=== PATIENT | female | born 1985 | race Two or more races ===

== ENCOUNTER 2017-10-13 10:14 | Emergency (ER) | payer MEDICAID ==
[~2017-10-13] VITALS: Ht 154.9 cm; Wt 63.5 kg
[~2017-10-13 10:14] MED LIST: MACROBID100 MG ORAL
[2017-10-13] MEDS ORDERED: NKM (10:21)
[2017-10-13 10:25] VITALS: BP 155/117
[2017-10-13] MEDS ORDERED: Ketorolac 30mg Inj IM ONE (10:45)
[2017-10-13] MEDS ORDERED: Norco 5mg/325mg tab ORAL ONE (10:45)
[2017-10-13] MEDS ORDERED: NORCO 5-325 TA1 EACH ORAL (12:26)
[2017-10-13] MEDS ORDERED: TYLENOL EXTRA500 MG ORAL (12:26)
[2017-10-13 12:36] VITALS: BP 155/117
--- NOTE | 2017-10-13 14:14 | Emergency Room Report ---
History of Present Illness General Chief Complaint: Pain Source: Patient Present Illness HPI 32-year-old female presents ED complaining of back pain. States last night she had a mechanical slip and fall landing on her buttock. Denies any other injuries. Presents with pain to her lower back., Sharp, 10 out of 10, nonradiating. No other aggravating relieving factors. Denies any other associated symptoms Allergies: Coded Allergies: No Known Allergies (Unverified , 03/13/16) Patient History Past Medical History: none Past Surgical History: none Pertinent Family History: none Social History: Denies: smoking, alcohol use, drug use Last Menstrual Period: 09/26/17 Now: No Immunizations: UTD Reviewed Nursing Documentation: PMH: Agreed, PSxH: Agreed Nursing Documentation-PMH Past Medical History: No History, Except For Review of Systems All Other Systems: negative except mentioned in HPI Physical Exam Vital Signs Date Time Temp Pulse Resp B/P (MAP) Pulse Ox O2 Delivery O2 Flow Rate FiO2 10/13/17 10:18 97.9 85 18 129/83 97 Room Air Sp02 EP Interpretation: reviewed, normal General Appearance: no apparent distress, alert, GCS 15, non-toxic Head: normocephalic, atraumatic Eyes: bilateral eye normal inspection, bilateral eye PERRL ENT: hearing grossly normal, normal pharynx, no angioedema, normal voice Neck: full range of motion, supple/symm/no masses Respiratory: chest non-tender, lungs clear, normal breath sounds, speaking full sentences Cardiovascular #1: regular rate, rhythm, no edema Cardiovascular #2: 2+ carotid (R), 2+ carotid (L), 2+ radial (R), 2+ radial (L) , 2+ dorsalis pedis (R), 2+ dorsalis pedis (L) Gastrointestinal: normal bowel sounds, non tender, soft, non-distended, no guarding, no rebound Rectal: deferred Genitourinary: normal inspection, no CVA tenderness, no vertebral tenderness Musculoskeletal: back normal, gait/station normal, normal range of motion, tender - paraspinal lumbar Neurologic: alert, oriented x3, responsive, motor strength/tone normal, sensory intact, speech normal Psychiatric: judgement/insight normal, memory normal, mood/affect normal, no suicidal/homicidal ideation Reflexes: 3+ bicep (R), 3+ bicep (L), 3+ tricep (R), 3+ tricep (L), 3+ knee (R) , 3+ knee (L) Skin: normal color, no rash, warm/dry, well hydrated Lymphatic: no adenopathy Medical Decision Making Diagnostic Impression: Primary Impression: Back pain Qualified Codes: M54.5 - Low back pain ER Course Hospital Course 32-year-old female presents ED complaining of lower back pain. Differential diagnoses include: pyelonephritis, kidney stone, muscle strain, Lspine fracture Clinical course Patient placed on stretcher. After initial history physical exam reveals a young female in mild distress. There is no vertebral body pain. No bruising deformity or step-off. There is some paraspinal lumbar pain. Negative straight leg bilaterally. 5 out of 5 motor in both legs bilaterally I ordered toradol and Douglas for pain. Upon reassessment patient states pain has improved. I do not believe imaging is indicated at this time Diagnosis - back pain Stable and discharged to home with prescription for Motrin, Douglas. Followup with PMD. Return to ED if symptoms recur or worsen Last Vital Signs Date Time Temp Pulse Resp B/P (MAP) Pulse Ox O2 Delivery O2 Flow Rate FiO2 10/13/17 12:36 97.9 72 18 155/117 97 Room Air Status: improved Disposition: HOME, SELF-CARE Condition: Stable Scripts Hydrocodone Bit/Acetaminophen 5-325* (NORCO 5-325*) 1 Each Tablet 1 TAB ORAL Q6H Y for For Pain, #10 TAB 0 Refills Prov: DEMETRIUS COHEN M.D. 10/13/17 Acetaminophen* (TYLENOL EXTRA STRENGTH*) 500 Mg Tablet 500 MG ORAL Q8H Y for Prn Headache/Temp > 101, #30 TAB 0 Refills Prov: DEMETRIUS COHEN M.D. 10/13/17 Departure Forms: Return to Work Return to Work Date: Oct 15, 2017 Work Restrictions: No Heavy Lifting Patient Instructions: Back Pain, Adult, [id number] DEMETRIUS COHEN M.D. Oct 13, 2017 14:14
== END 2017-10-13 12:36 | disposition home or self-care (01) ==
LOC: EMR 11:00
DX: M54.5 Low back pain (principal)
CPT/HCPCS: 96372; 99283; J1885

== ENCOUNTER 2018-05-15 08:11 | Emergency (ER) | payer SELFPAY ==
[~2018-05-15] VITALS: Ht 154.9 cm; Wt 70.8 kg
[~2018-05-15 08:11] MED LIST changes: +NKM; +NORCO 5-325 TA1 EACH ORAL; +TYLENOL EXTRA500 MG ORAL
[2018-05-15 09:18] VITALS: BP 118/70
[2018-05-15 09:29] LABS: APPEARANCE,URINE TURBID; BILIRUBIN, URINE NEGATIVE (NEGATIVE); GLUCOSE, URINE (UA) NEGATIVE (NEGATIVE); KETONES,URINE NEGATIVE (NEGATIVE); LEUKOCYTE ESTERASE ,URINE 2+ (NEGATIVE); NITRITE,URINE NEGATIVE (NEGATIVE); PH,URINE 6 (4.5-8.0); PROTEIN,URINE 2+ (NEGATIVE); UROBILINOGEN,URINE NORMAL MG/DL (0.0-1.0)
[2018-05-15 09:30] LABS: COLOR,URINE YELLOW
[2018-05-15 09:31] LABS: BASOPHILS % (AUTO) 1.1 % (0.0-2.0); EOSINOPHILS % (AUTO) 0.2 % (0.0-3.0); HEMATOCRIT 40.9 % (37.0-47.0); HEMOGLOBIN 13.5 G/DL (12.0-16.0); LYMPHOCYTES % (AUTO) 24.6 % (20.0-45.0); MEAN CORPUSCULAR VOLUME 86 FL (80-99); MONOCYTES % (AUTO) 11.7 % (1.0-10.0); NEUTROPHILS % (AUTO) 62.6 % (45.0-75.0); PLATELET COUNT 269 K/UL (150-450); RED BLOOD COUNT 4.76 M/UL (4.20-5.40); RED CELL DISTRIBUTION WIDTH 11.9 % (11.6-14.8); WHITE BLOOD COUNT 5.3 K/UL (4.8-10.8)
[2018-05-15 09:38] LABS: ANION GAP 10 mmol/L (5-15); BLOOD UREA NITROGEN 11 mg/dL (7-18); CALCIUM 9.1 MG/DL (8.5-10.1); CARBON DIOXIDE 26 MMOL/L (21-32); CHLORIDE 102 MMOL/L (98-107); CREATININE 0.7 MG/DL (0.55-1.30); POTASSIUM 3.8 MMOL/L (3.5-5.1); SODIUM 138 MMOL/L (136-145)
[2018-05-15 09:42] LABS: ALANINE AMINOTRANSFERASE 41 U/L (12-78); ALBUMIN 3.8 G/DL (3.4-5.0); ALBUMIN/GLOBULIN RATIO 0.9 (1.0-2.7); ALKALINE PHOSPHATASE 78 U/L (46-116); ASPARTATE AMINO TRANSFERASE 33 U/L (15-37); BILIRUBIN,TOTAL 0.7 MG/DL (0.2-1.0)
[2018-05-15 10:46] VITALS: BP 119/69
--- NOTE | 2018-05-15 10:48 | Emergency Room Report ---
History of Present Illness General Chief Complaint: Headache Source: Patient Present Illness HPI This patient states that last night she started having subjective fever, body aches, chills. She states that she also developed a headache. She states that her whole body hurts. She denies cough or congestion. She denies neck pain. She states that she has a history of migraines and had some blurry vision with the headache. She denies weakness. She denies tingling or numbness. She denies abdominal pain. She has no other complaints. Allergies: Coded Allergies: No Known Allergies (Unverified , 03/13/16) Patient History Past Medical History: see triage record, migraines Past Surgical History: none Pertinent Family History: none Social History: Denies: smoking, alcohol use, drug use Last Menstrual Period: 05/10/18 Now: No : 1 Para: 1 Reviewed Nursing Documentation: PMH: Agreed; PSxH: Agreed Nursing Documentation-PMH Past Medical History: No History, Except For Review of Systems All Other Systems: negative except mentioned in HPI Physical Exam Vital Signs Date Time Temp Pulse Resp B/P (MAP) Pulse Ox O2 Delivery O2 Flow Rate FiO2 05/15/18 08:34 98.2 76 18 110/68 96 Room Air 98.2 Sp02 EP Interpretation: reviewed, normal General Appearance: no apparent distress, alert, GCS 15, non-toxic Head: normocephalic, atraumatic Eyes: bilateral eye normal inspection, bilateral eye PERRL ENT: hearing grossly normal, normal pharynx, no angioedema, normal voice Neck: full range of motion, supple/symm/no masses Respiratory: chest non-tender, lungs clear, normal breath sounds, speaking full sentences Cardiovascular #1: regular rate, rhythm, no edema Gastrointestinal: normal bowel sounds, non tender, soft, non-distended, no guarding, no rebound Rectal: deferred Musculoskeletal: back normal, gait/station normal, normal range of motion, non- tender, calf tenderness Neurologic: alert, oriented x3, responsive, motor strength/tone normal, sensory intact, speech normal Psychiatric: judgement/insight normal, memory normal, mood/affect normal, no suicidal/homicidal ideation Skin: normal color, no rash, warm/dry, well hydrated Medical Decision Making Diagnostic Impression: Primary Impression: Viral syndrome ER Course This patient has a clinical presentation consistent with viral syndrome. Symptoms are nonspecific. There are no red flags on physical exam that would make me concerned for serious illness. This includes no evidence of meningitis , intra-abdominal process that would make me concerned for appendicitis or diverticulitis or other surgical or emergency etiology. Overall, this patient' s presentation is benign and the patient is nontoxic. Laboratory workup is negative. There is no evidence of an emergency medical condition. The patient' s urinalysis was contaminated. I will go ahead and give a course of antibiotics as a precaution. The patient is given close return precautions and followup instructions. Laboratory Tests Test 05/15/18 09:00 White Blood Count 5.3 K/UL (4.8-10.8) Red Blood Count 4.76 M/UL (4.20-5.40) Hemoglobin 13.5 G/DL (12.0-16.0) Hematocrit 40.9 % (37.0-47.0) Mean Corpuscular Volume 86 FL (80-99) Mean Corpuscular Hemoglobin 28.3 PG (27.0-31.0) Mean Corpuscular Hemoglobin Concent 32.9 G/DL (32.0-36.0) Red Cell Distribution Width 11.9 % (11.6-14.8) Platelet Count 269 K/UL (150-450) Mean Platelet Volume 7.3 FL (6.5-10.1) Neutrophils (%) (Auto) 62.6 % (45.0-75.0) Lymphocytes (%) (Auto) 24.6 % (20.0-45.0) Monocytes (%) (Auto) 11.7 % (1.0-10.0) H Eosinophils (%) (Auto) 0.2 % (0.0-3.0) Basophils (%) (Auto) 1.1 % (0.0-2.0) Urine Color Yellow Urine Appearance Turbid Urine pH 6 (4.5-8.0) Urine Specific [place] 1.025 (1.005-1.035) Urine Protein 2+ (NEGATIVE) H Urine Glucose (UA) Negative (NEGATIVE) Urine Ketones Negative (NEGATIVE) Urine Occult Blood 1+ (NEGATIVE) H Urine Nitrite Negative (NEGATIVE) Urine Bilirubin Negative (NEGATIVE) Urine Urobilinogen Normal MG/DL (0.0-1.0) Urine Leukocyte Esterase 2+ (NEGATIVE) H Urine RBC 2-4 /HPF (0 - 2) H Urine WBC 10-15 /HPF (0 - 2) H Urine Squamous Epithelial Cells Many /LPF (NONE/OCC) H Urine Bacteria Moderate /HPF (NONE) H Urine Hyaline Casts 0-2 /LPF (NONE) H Urine Mucus Moderate /LPF (NONE/OCC) H Urine HCG, Qualitative Negative (NEGATIVE) Sodium Level 138 MMOL/L (136-145) Potassium Level 3.8 MMOL/L (3.5-5.1) Chloride Level 102 MMOL/L (98-107) Carbon Dioxide Level 26 MMOL/L (21-32) Anion Gap 10 mmol/L (5-15) Blood Urea Nitrogen 11 mg/dL (7-18) Creatinine 0.7 MG/DL (0.55-1.30) Estimate Glomerular Filtration Rate > 60 mL/min (>60) Glucose Level 96 MG/DL (74-106) Calcium Level 9.1 MG/DL (8.5-10.1) Total Bilirubin 0.7 MG/DL (0.2-1.0) Aspartate Amino Transferase (AST) 33 U/L (15-37) Alanine Aminotransferase (ALT) 41 U/L (12-78) Alkaline Phosphatase 78 U/L (46-116) Total Protein 8.2 G/DL (6.4-8.2) Albumin 3.8 G/DL (3.4-5.0) Globulin 4.4 g/dL Albumin/Globulin Ratio 0.9 (1.0-2.7) L Urine Opiates Screen Negative (NEGATIVE) Urine Barbiturates Screen Negative (NEGATIVE) Phencyclidine (PCP) Screen Negative (NEGATIVE) Urine Amphetamines Screen Negative (NEGATIVE) Urine Benzodiazepines Screen Negative (NEGATIVE) Urine Cocaine Screen Negative (NEGATIVE) Urine Marijuana (THC) Screen Negative (NEGATIVE) Last Vital Signs Date Time Temp Pulse Resp B/P (MAP) Pulse Ox O2 Delivery O2 Flow Rate FiO2 05/15/18 09:18 98.9 84 18 118/70 100 Room Air 98.9 Status: improved Disposition: HOME, SELF-CARE Condition: Improved Referrals: NOT CHOSEN IPA/,REFERRING (PCP) Sara Leal DO May 15, 2018 10:48
[2018-05-15] MEDS ORDERED: ZOFRAN ODT8 MG ORAL (10:57)
[2018-05-15] MEDS ORDERED: NITROFURANTOIN100 M2 ORAL (10:57)
[2018-05-15 11:00] VITALS: BP 119/69
== END 2018-05-15 11:00 | disposition home or self-care (01) ==
LOC: EMR 09:11
DX: B34.9 Viral infection, unspecified (principal)
CPT/HCPCS: 36415; 80053; 80307; 81003; 81025; 85025; 87086; 96360; 99283

== ENCOUNTER 2018-07-15 19:13 | Inpatient (IN) | payer SELFPAY ==
[~2018-07-15] VITALS: Ht 154.9 cm; Wt 72.6 kg
[~2018-07-15 19:13] MED LIST changes: +NITROFURANTOIN100 M2 ORAL; +ZOFRAN ODT8 MG ORAL
[2018-07-15 19:30] VITALS: BP 99/86
[2018-07-15] MEDS ORDERED: Isovue-300 100ml vial INJ PRN (19:30)
[2018-07-15] MEDS ORDERED: Morphine Sulfate 4mg/ml Inj (IV USE ONLY) IVP ONE (19:30)
--- NOTE | 2018-07-15 19:31 | Emergency Room Report ---
History of Present Illness General Chief Complaint: Abdominal Pain Source: Patient Present Illness HPI 32-year-old female presents ED for evaluation. Patient complaining of abdominal pain which started this morning. Pain is sharp, 10 out of 10, localized to right lower quadrant, radiating to the back. No aggravating relieving factors. Patient crying during evaluation. States she has history of gallstones but states this pain feels different. Denies any dysuria or hematuria. No other aggravating relieving factors. Denies any other associated symptoms Allergies: Coded Allergies: No Known Allergies (Unverified , 03/13/16) Patient History Past Medical History: none Past Surgical History: none Pertinent Family History: none Social History: Denies: smoking, alcohol use, drug use Last Menstrual Period: 2 weeks ago Now: No Immunizations: UTD Reviewed Nursing Documentation: PMH: Agreed; PSxH: Agreed Nursing Documentation-PMH Past Medical History: No History, Except For Review of Systems All Other Systems: negative except mentioned in HPI Physical Exam Vital Signs Date Time Temp Pulse Resp B/P (MAP) Pulse Ox O2 Delivery O2 Flow Rate FiO2 07/15/18 19:14 98.6 101 16 153/94 99 Room Air 98.6 Sp02 EP Interpretation: reviewed, normal General Appearance: moderate distress Head: normocephalic, atraumatic Eyes: bilateral eye normal inspection, bilateral eye PERRL ENT: hearing grossly normal, normal pharynx, no angioedema, normal voice Neck: full range of motion, supple/symm/no masses Respiratory: chest non-tender, lungs clear, normal breath sounds, speaking full sentences Cardiovascular #1: regular rate, rhythm, no edema Cardiovascular #2: 2+ carotid (R), 2+ carotid (L), 2+ radial (R), 2+ radial (L) , 2+ dorsalis pedis (R), 2+ dorsalis pedis (L) Gastrointestinal: guarding, tenderness - RLQ Rectal: deferred Genitourinary: normal inspection, no CVA tenderness Musculoskeletal: back normal, gait/station normal, normal range of motion, non- tender Neurologic: alert, oriented x3, responsive, motor strength/tone normal, sensory intact, speech normal Psychiatric: judgement/insight normal, memory normal, mood/affect normal, no suicidal/homicidal ideation Reflexes: 3+ bicep (R), 3+ bicep (L), 3+ tricep (R), 3+ tricep (L), 3+ knee (R) , 3+ knee (L) Skin: normal color, no rash, warm/dry, well hydrated Lymphatic: no adenopathy Medical Decision Making Diagnostic Impression: Primary Impression: Kidney stone ER Course Hospital Course 32-year-old F presents to ED with R lower abdominal pain Differential diagnosis includes-appendicitis, cholecystitis, kidney stone, pyelonephritis Clinical course Patient placed on stretcher. After initial history and physical I ordered labs , IV fluids, pain medications and CT scan Labs - marked leukocytosis, electrolytes ok, LFTs normal, UA - gross blood CT scan shows 5x4mm stone on R with hydronephrosis/perinephric stranding Given leukocytosis, perinephric stranding I believe patient should be admitted. Antibiotics given. patient admitted to Dr Citlalli Elliott will consult I feel this is a highly complex case requiring extensive working including EKG/ Rhythm strip, Xray/CT/US, Blood/urine lab work, repeat exams while in ED, and administration of strong opiates/narcotics for pain control, admission to hospital or close patient follow up. Diagnosis - kidney stone admitted to floor in serious condition Labs Test 07/15/18 19:23 07/15/18 20:18 07/16/18 05:15 07/17/18 05:45 White Blood Count 16.7 K/UL (4.8-10.8) 10.5 K/UL (4.8-10.8) 8.4 K/UL (4.8-10.8) Red Blood Count 4.91 M/UL (4.20-5.40) 3.84 M/UL (4.20-5.40) 3.62 M/UL (4.20-5.40) Hemoglobin 14.0 G/DL (12.0-16.0) 11.2 G/DL (12.0-16.0) 10.6 G/DL (12.0-16.0) Hematocrit 42.3 % (37.0-47.0) 33.3 % (37.0-47.0) 31.5 % (37.0-47.0) Mean Corpuscular Volume 86 FL (80-99) 87 FL (80-99) 87 FL (80-99) Mean Corpuscular Hemoglobin 28.6 PG (27.0-31.0) 29.2 PG (27.0-31.0) 29.3 PG (27.0-31.0) Mean Corpuscular Hemoglobin Concent 33.2 G/DL (32.0-36.0) 33.6 G/DL (32.0-36.0) 33.7 G/DL (32.0-36.0) Red Cell Distribution Width 11.5 % (11.6-14.8) 11.6 % (11.6-14.8) 11.5 % (11.6-14.8) Platelet Count 312 K/UL (150-450) 248 K/UL (150-450) 218 K/UL (150-450) Mean Platelet Volume 7.4 FL (6.5-10.1) 7.5 FL (6.5-10.1) 7.8 FL (6.5-10.1) Neutrophils (%) (Auto) 76.3 % (45.0-75.0) 67.1 % (45.0-75.0) 67.2 % (45.0-75.0) Lymphocytes (%) (Auto) 17.0 % (20.0-45.0) 23.7 % (20.0-45.0) 22.3 % (20.0-45.0) Monocytes (%) (Auto) 5.9 % (1.0-10.0) 8.0 % (1.0-10.0) 9.1 % (1.0-10.0) Eosinophils (%) (Auto) 0.3 % (0.0-3.0) 0.6 % (0.0-3.0) 0.9 % (0.0-3.0) Basophils (%) (Auto) 0.5 % (0.0-2.0) 0.7 % (0.0-2.0) 0.5 % (0.0-2.0) Sodium Level 133 MMOL/L (136-145) 137 MMOL/L (136-145) 137 MMOL/L (136-145) Potassium Level 3.7 MMOL/L (3.5-5.1) 3.6 MMOL/L (3.5-5.1) 3.8 MMOL/L (3.5-5.1) Chloride Level 101 MMOL/L (98-107) 106 MMOL/L (98-107) 105 MMOL/L (98-107) Carbon Dioxide Level 23 MMOL/L (21-32) 26 MMOL/L (21-32) 25 MMOL/L (21-32) Anion Gap 9 mmol/L (5-15) 5 mmol/L (5-15) 7 mmol/L (5-15) Blood Urea Nitrogen 15 mg/dL (7-18) 10 mg/dL (7-18) 9 mg/dL (7-18) Creatinine 0.8 MG/DL (0.55-1.30) 0.6 MG/DL (0.55-1.30) 0.7 MG/DL (0.55-1.30) Estimat Glomerular Filtration Rate > 60 mL/min (>60) > 60 mL/min (>60) > 60 mL/min (>60) Glucose Level 120 MG/DL (74-106) 99 MG/DL (74-106) 93 MG/DL (74-106) Calcium Level 9.6 MG/DL (8.5-10.1) 8.1 MG/DL (8.5-10.1) 8.3 MG/DL (8.5-10.1) Total Bilirubin 0.5 MG/DL (0.2-1.0) Aspartate Amino Transf (AST/SGOT) 20 U/L (15-37) Alanine Aminotransferase (ALT/SGPT) 24 U/L (12-78) Alkaline Phosphatase 89 U/L (46-116) Total Protein 8.9 G/DL (6.4-8.2) Albumin 4.1 G/DL (3.4-5.0) Globulin 4.8 g/dL Albumin/Globulin Ratio 0.9 (1.0-2.7) Lipase 122 U/L (73-393) Human Chorionic Gonadotropin, Quant 1 mIU/mL (1-6) Urine Color Pale yellow Urine Appearance Clear Urine pH 5 (4.5-8.0) Urine Specific [place] 1.020 (1.005-1.035) Urine Protein Negative (NEGATIVE) Urine Glucose (UA) Negative (NEGATIVE) Urine Ketones Negative (NEGATIVE) Urine Blood 5+ (NEGATIVE) Urine Nitrite Negative (NEGATIVE) Urine Bilirubin Negative (NEGATIVE) Urine Urobilinogen Normal MG/DL (0.0-1.0) Urine Leukocyte Esterase 1+ (NEGATIVE) Urine RBC 5-10 /HPF (0 - 2) Urine WBC 2-4 /HPF (0 - 2) Urine Squamous Epithelial Cells Moderate /LPF (NONE/OCC) Urine Bacteria Few /HPF (NONE) Urine HCG, Qualitative Negative (NEGATIVE) Urine Opiates Screen Positive (NEGATIVE) Urine Barbiturates Screen Negative (NEGATIVE) Phencyclidine (PCP) Screen Negative (NEGATIVE) Urine Amphetamines Screen Negative (NEGATIVE) Urine Benzodiazepines Screen Negative (NEGATIVE) Urine Cocaine Screen Negative (NEGATIVE) Urine Marijuana (THC) Screen Negative (NEGATIVE) Magnesium Level 1.8 MG/DL (1.8-2.4) CT/MRI/US Diagnostic Results CT/MRI/US Diagnostic Results : Imaging Test Ordered: CT A/P Impression 5x4mm stone on R, with hydronephrosis, perinephric stranding Last Vital Signs Date Time Temp Pulse Resp B/P (MAP) Pulse Ox O2 Delivery O2 Flow Rate FiO2 07/15/18 19:14 98.6 101 16 153/94 99 Room Air 98.6 Status: improved Disposition: ADMITTED INPATIENT Condition: Serious Referrals: NOT CHOSEN IPA/,REFERRING (PCP) Lorenzo Astorga MD Jul 15, 2018 19:30
[2018-07-15 19:32] LABS: BASOPHILS % (AUTO) 0.5 % (0.0-2.0); EOSINOPHILS % (AUTO) 0.3 % (0.0-3.0); HEMATOCRIT 42.3 % (37.0-47.0); MEAN CORPUSCULAR VOLUME 86 FL (80-99); MONOCYTES % (AUTO) 5.9 % (1.0-10.0); NEUTROPHILS % (AUTO) 76.3 % (45.0-75.0); PLATELET COUNT 312 K/UL (150-450); RED BLOOD COUNT 4.91 M/UL (4.20-5.40); RED CELL DISTRIBUTION WIDTH 11.5 % (11.6-14.8); WHITE BLOOD COUNT 16.7 K/UL (4.8-10.8)
[2018-07-15 19:42] LABS: ANION GAP 9 mmol/L (5-15); BLOOD UREA NITROGEN 15 mg/dL (7-18); CALCIUM 9.6 MG/DL (8.5-10.1); CARBON DIOXIDE 23 MMOL/L (21-32); CHLORIDE 101 MMOL/L (98-107); CREATININE 0.8 MG/DL (0.55-1.30); POTASSIUM 3.7 MMOL/L (3.5-5.1); SODIUM 133 MMOL/L (136-145)
[2018-07-15 19:47] LABS: ALANINE AMINOTRANSFERASE 24 U/L (12-78); ALBUMIN 4.1 G/DL (3.4-5.0); ALBUMIN/GLOBULIN RATIO 0.9 (1.0-2.7); ALKALINE PHOSPHATASE 89 U/L (46-116); ASPARTATE AMINO TRANSFERASE 20 U/L (15-37); BILIRUBIN,TOTAL 0.5 MG/DL (0.2-1.0)
[2018-07-15] MEDS ORDERED: HYDROmorphone 1mg/ml Carpuject IVP ONE (20:00)
[2018-07-15 20:23] LABS: APPEARANCE,URINE CLEAR; BILIRUBIN, URINE NEGATIVE (NEGATIVE); COLOR,URINE PALE YELLOW; GLUCOSE, URINE (UA) NEGATIVE (NEGATIVE); KETONES,URINE NEGATIVE (NEGATIVE); LEUKOCYTE ESTERASE ,URINE 1+ (NEGATIVE); NITRITE,URINE NEGATIVE (NEGATIVE); PH,URINE 5 (4.5-8.0); PROTEIN,URINE NEGATIVE (NEGATIVE); UROBILINOGEN,URINE NORMAL MG/DL (0.0-1.0)
[2018-07-15] MEDS ORDERED: Ketorolac 30mg Inj IV ONE (21:00)
[2018-07-15] MEDS ORDERED: Ketorolac 30mg Inj ONE (21:02)
[2018-07-15] MEDS ORDERED: cefTRIAXone 2 GM in NS 55 ML IVPB ONE (21:45)
[2018-07-15 22:12] VITALS: BP 117/71
[2018-07-16] VITALS: BP 119/70
--- NOTE | 2018-07-16 00:15 | Consultation ---
DATE OF CONSULTATION: 07/15/2018 UROLOGY CONSULTATION CONSULTING PHYSICIAN: Eric Elliott M.D. ATTENDING/REFERRING PHYSICIAN: Dr. Kristopher Contreras of the emergency department. CHIEF COMPLAINT/HISTORY OF PRESENT ILLNESS: I was asked by Dr. Contreras to evaluate this 32-year-old female regarding history of a right ureteral stone with hydronephrosis and colic secondary to same. Briefly, the patient noted right abdominal pain starting this morning. This was associated with some nausea. She did not vomit or have any fevers, chills, or dysuria. She presented to the emergency room given the severity of the pain. She was given multiple doses of pain medication here, but failed to improve. A CT scan revealed a 6 mm stone in the right ureter. As such, I was asked to evaluate the patient. The patient has no history of previous kidney stones. PAST MEDICAL HISTORY: 1. Gallstones. 2. Aborted cholecystectomy. MEDICATIONS: Please see the chart for current medications and administration details. Briefly, the patient has received 1 g of Rocephin here and some doses of morphine and Toradol. ALLERGIES: No known drug allergies. SOCIAL HISTORY: Unremarkable for tobacco or drug use. The patient drinks alcohol socially. FAMILY HISTORY: Noncontributory. REVIEW OF SYSTEMS: A 14-system review of systems essentially unremarkable outside of what is described above. PHYSICAL EXAMINATION: GENERAL: The patient is a young female, awake, alert, pleasant, in mild distress. HEENT: NC/AT. EOMI. NECK: Supple. Full range of motion. Oropharynx clear. CHEST: Within normal limits. ABDOMEN: Soft, nontender, and nondistended. EXTREMITIES: Warm and well perfused. No cyanosis, clubbing, or edema. BACK: Right CVA tenderness to percussion. NEUROLOGIC: Grossly nonfocal. LABORATORY AND DIAGNOSTIC DATA: White blood cell count 16.7, hematocrit 42.3, and platelets 312,000. Sodium 133, potassium 3.7, chloride 101, bicarbonate 23, BUN 15, creatinine 0.8, glucose 120, calcium 9.6. LFTs within normal limits. Urine negative. Lipase 122. Urinalysis, specific gravity 1.020, pH 5.0. Dip test notable for 5+ occult blood, 1+ leukocyte esterase. Microanalysis with 5-10 red blood cells per high-power field, 2-4 white blood cells per high-power field, and few bacteria seen. U-tox positive for opiates only. Diagnostic imaging, CT scan of the abdomen and pelvis reveals a [id number] 6 mm right ureteral stone with hydronephrosis secondary to the same. ASSESSMENT AND PLAN: In summary, the patient is a 32-year-old female with history of right renal colic, presenting for evaluation of the same. Workup reveals a 6-mm stone in the right ureter with hydronephrosis secondary to same. Physical exam reveals some persistent right CVA tenderness despite multiple rounds of medication. Laboratory data is notable for an elevated white blood cell count. I discussed these findings today with the patient at bedside. She does not feel significantly better and as such will remain in the hospital for management of her stone. We will keep her on Toradol [id number] to improve her pain control. Additionally, we will keep her on Rocephin 1 g IV given her high white blood cell count. I will plan for operative intervention likely on Friday with ureteroscopy, laser lithotripsy, possible double-J stent placement, cystoscopy, and fluoroscopy. The patient understood and wished to continue with the same and agreed with this plan. Thank you for allowing me to participate in the care of this nice lady. Please do not hesitate to contact me for any questions that you may further have regarding her care. I will be happy to see her with you as needed. Eric Elliott M.D. DR: JENNIFER JOB#: [id number] CC:
[2018-07-16] MEDS ORDERED: Morphine Sulfate 4mg/ml Inj (IV USE ONLY) IVP PRN (00:30)
[2018-07-16] MEDS ORDERED: Morphine Sulfate 2mg/ml Inj IVP PRN ×3 (00:30→10:30)
[2018-07-16] MEDS: Ketorolac 30mg Inj IV SCH ×4 (03:26→20:46)
[2018-07-16 04:00] VITALS: BP 101/56
[2018-07-16 06:19] LABS: BASOPHILS % (AUTO) 0.7 % (0.0-2.0); EOSINOPHILS % (AUTO) 0.6 % (0.0-3.0); HEMATOCRIT 33.3 % (37.0-47.0); HEMOGLOBIN 11.2 G/DL (12.0-16.0); LYMPHOCYTES % (AUTO) 23.7 % (20.0-45.0); MEAN CORPUSCULAR VOLUME 87 FL (80-99); NEUTROPHILS % (AUTO) 67.1 % (45.0-75.0); PLATELET COUNT 248 K/UL (150-450); RED BLOOD COUNT 3.84 M/UL (4.20-5.40); RED CELL DISTRIBUTION WIDTH 11.6 % (11.6-14.8); WHITE BLOOD COUNT 10.5 K/UL (4.8-10.8)
[2018-07-16 06:30] LABS: ANION GAP 5 mmol/L (5-15); BLOOD UREA NITROGEN 10 mg/dL (7-18); CALCIUM 8.1 MG/DL (8.5-10.1); CARBON DIOXIDE 26 MMOL/L (21-32); CHLORIDE 106 MMOL/L (98-107); CREATININE 0.6 MG/DL (0.55-1.30); POTASSIUM 3.6 MMOL/L (3.5-5.1); SODIUM 137 MMOL/L (136-145)
[2018-07-16 08:00] VITALS: BP 120/69
[2018-07-16] MEDS: Docusate 100mg cap ORAL SCH ×2 (08:12→17:59)
--- NOTE | 2018-07-16 09:55 | Diagnostic Imaging Report ---
Clinical Indication: Right lower quadrant abdominal pain radiating to the back Technique: No oral contrast utilized, per emergency room physician request IV administration nonionic contrast. Venous phase spiral acquisition obtained through the abdomen and pelvis. Multiplanar reconstructions were generated. Total dose length product 819.7 mGycm. CTDIvol(s) 16.82 mGy. Dose reduction achieved using automated exposure control Comparison: none Findings: Within the right distal ureter, there is a 5 x 4 mm calculus. This is located approximately 4 cm proximal to the ureterovesical junction. This results in mild right hydroureter, mild right hydronephrosis, considerable infiltration of the. Nephric fat, and delay in renal opacification. No intrarenal calculi are demonstrated. No left renal or ureteral calculi are demonstrated. Left kidney demonstrates at least 2 tiny subcentimeter low-attenuation lesions which are too small to characterize. The bladder is unremarkable without evidence of calculi The gallbladder contains gallstones. It is nondistended. There is no gallbladder wall thickening. Multiple eggshell calcifications of varying sizes are seen in the meka hepatis. The relationship of these to the bile ducts is unclear. There is central intrahepatic biliary ductal dilatation. The liver demonstrates no focal abnormality. The pancreas, spleen, adrenals are unremarkable. No retroperitoneal or mesenteric mass or adenopathy. No pelvic mass or adenopathy. The uterus demonstrates an intrauterine device in good position. The appendix is normal. There are equivocally small colonic diverticula. No evidence of diverticulitis. No small bowel distention.. There is trace free pelvic fluid. No intraperitoneal gas is evident. The bones are unremarkable. The included lung bases are clear Impression: 5 x 4 mm calculus within the distal right ureter, resulting in mild hydronephrosis and hydroureter and some perinephric fat stranding Cholelithiasis. Unusual eggshell calcification in the meka hepatis. Uncertain as to whether these represent unusual intraductal calculi versus postinflammatory changes within the meka although presence of central intrahepatic biliary ductal dilatation is certainly concerning for the former suspect colonic diverticulosis. Recommend ultrasound and/or MRCP for better characterization Intrauterine device incidentally noted Trace free pelvic fluid, presumably physiologic This agrees with the preliminary interpretation provided overnight by [facility] teleradiology service. The CT scanner at [facility] is accredited by the [place] [employer] and the scans are performed using protocols designed to limit radiation exposure to as low as reasonably achievable to attain images of sufficient resolution adequate for diagnostic evaluation.
--- NOTE | 2018-07-16 10:14 | History and Physical ---
History of Present Illness General Date patient seen: Jul 16, 2018 Time patient seen: 10:14 Reason for Hospitalization: Abdominal Pain Present Illness HPI 32y/o female with pmh of cholelithiasis who presents with R abd/flank pain. Pt noted acute onset severe R abd/flank pain since yesterday AM w/ associated nausea but no emesis. Denies f/c, d/c, chest pain, SOB, dysuria, hematuria. In ED, pt had CT which showed 6 mm stone in the right ureter. Urology consulted. Pt given ceftriaxone IV in ED. PMH: cholelithiasis PSH: aborted cholecystectomy SH: lives at home, denies tobacco and drug use, social alcohol use FMH: denies Allergies: Coded Allergies: No Known Allergies (Unverified , 03/13/16) Medication History Scheduled Nitrofurantoin Monohyd/M-Cryst (Nitrofurantoin [place]-Mcr 100 mg), 100 MG ORAL Q12H Nitrofurantoin Monohyd/M-Cryst* (Macrobid 100 Mg*), 100 MG ORAL EVERY 12 HOURS No Known Medications* (NKM - No Known Medications*), 0 ., (Reported) Scheduled PRN Acetaminophen* (Tylenol Extra Strength*), 500 MG ORAL Q8H PRN for Prn Headache/ Temp > 101 Hydrocodone Bit/Acetaminophen 5-325* ([place] 5-325*), 1 TAB ORAL Q6H PRN for For Pain Ondansetron Odt* (Zofran Odt*), 8 MG ORAL Q6H PRN for Nausea & Vomiting Patient History History Provided By: Patient, Medical Record Healthcare decision maker Resuscitation status Full Code Advanced Directive on File No Review of Systems Constitutional: Reports: no symptoms Eye: Reports: no symptoms ENT: Reports: no symptoms Respiratory: Reports: no symptoms Cardiovascular: Reports: no symptoms Gastrointestinal: Reports: nausea Genitourinary: Reports: pain Musculoskeletal: Reports: no symptoms Skin: Reports: no symptoms Psychiatric: Reports: no symptoms Neurological: Reports: no symptoms Endocrine: Reports: no symptoms Hematologic/Lymphatic: Reports: no symptoms Physical Exam Physical Exam Narrative General: alert, cooperative, no distress, appears stated age Head: normocephalic, without obvious abnormality, atraumatic Eyes: conjunctivae/corneas clear. PERRL, EOM's intact Throat: lips, mucosa, and tongue normal. MMM Neck: supple, symmetrical, trachea midline, and no JVD Lungs: clear to auscultation bilaterally Heart: regular rate and rhythm, S1, S2 normal, no murmur, click, rub or gallop Abdomen: soft, +TTP of RLQ, non-distended, bowel sounds normal : + R CVAT Extremities: extremities normal, atraumatic, no cyanosis or edema Pulses: 2+ and symmetric Skin: skin color, texture, turgor normal; no rashes or lesions Neurologic: grossly normal, no focal deficits Last 24 Hour Vital Signs Date Time Temp Pulse Resp B/P (MAP) Pulse Ox O2 Delivery O2 Flow Rate FiO2 07/16/18 09:00 Room Air 07/16/18 08:43 98.0 07/16/18 08:13 98.0 07/16/18 08:00 97.6 62 18 120/69 (86) 98 97.6 07/16/18 04:00 98.0 70 19 101/56 (71) 97 98.0 07/16/18 00:00 96.1 72 18 119/70 (86) 96 96.1 07/15/18 23:51 Room Air 07/15/18 22:50 98.6 95 16 117/71 99 Room Air 98.6 07/15/18 22:12 98.6 95 16 117/71 99 Room Air 98.6 07/15/18 21:35 98.6 07/15/18 21:05 98.6 07/15/18 20:28 98.6 07/15/18 20:05 98.6 07/15/18 19:58 98.6 07/15/18 19:35 98.6 07/15/18 19:30 98.6 72 16 99/86 99 Room Air 98.6 07/15/18 19:14 98.6 101 16 153/94 99 Room Air 98.6 Intake and Output 07/15/18 07/16/18 19:00 07:00 Intake Total 1555 ml Balance 1555 ml Intake IV Total 1555 ml # Voids 2 Laboratory Tests Test 07/15/18 19:23 07/15/18 20:18 07/16/18 05:15 White Blood Count 16.7 K/UL (4.8-10.8) H 10.5 K/UL (4.8-10.8) Red Blood Count 4.91 M/UL (4.20-5.40) 3.84 M/UL (4.20-5.40) L Hemoglobin 14.0 G/DL (12.0-16.0) 11.2 G/DL (12.0-16.0) L Hematocrit 42.3 % (37.0-47.0) 33.3 % (37.0-47.0) L Mean Corpuscular Volume 86 FL (80-99) 87 FL (80-99) Mean Corpuscular Hemoglobin 28.6 PG (27.0-31.0) 29.2 PG (27.0-31.0) Mean Corpuscular Hemoglobin Concent 33.2 G/DL (32.0-36.0) 33.6 G/DL (32.0-36.0) Red Cell Distribution Width 11.5 % (11.6-14.8) L 11.6 % (11.6-14.8) Platelet Count 312 K/UL (150-450) 248 K/UL (150-450) Mean Platelet Volume 7.4 FL (6.5-10.1) 7.5 FL (6.5-10.1) Neutrophils (%) (Auto) 76.3 % (45.0-75.0) H 67.1 % (45.0-75.0) Lymphocytes (%) (Auto) 17.0 % (20.0-45.0) L 23.7 % (20.0-45.0) Monocytes (%) (Auto) 5.9 % (1.0-10.0) 8.0 % (1.0-10.0) Eosinophils (%) (Auto) 0.3 % (0.0-3.0) 0.6 % (0.0-3.0) Basophils (%) (Auto) 0.5 % (0.0-2.0) 0.7 % (0.0-2.0) Sodium Level 133 MMOL/L (136-145) L 137 MMOL/L (136-145) Potassium Level 3.7 MMOL/L (3.5-5.1) 3.6 MMOL/L (3.5-5.1) Chloride Level 101 MMOL/L (98-107) 106 MMOL/L (98-107) Carbon Dioxide Level 23 MMOL/L (21-32) 26 MMOL/L (21-32) Anion Gap 9 mmol/L (5-15) 5 mmol/L (5-15) Blood Urea Nitrogen 15 mg/dL (7-18) 10 mg/dL (7-18) Creatinine 0.8 MG/DL (0.55-1.30) 0.6 MG/DL (0.55-1.30) Estimat Glomerular Filtration Rate > 60 mL/min (>60) > 60 mL/min (>60) Glucose Level 120 MG/DL (74-106) H 99 MG/DL (74-106) Calcium Level 9.6 MG/DL (8.5-10.1) 8.1 MG/DL (8.5-10.1) L Total Bilirubin 0.5 MG/DL (0.2-1.0) Aspartate Amino Transf (AST/SGOT) 20 U/L (15-37) Alanine Aminotransferase (ALT/SGPT) 24 U/L (12-78) Alkaline Phosphatase 89 U/L (46-116) Total Protein 8.9 G/DL (6.4-8.2) H Albumin 4.1 G/DL (3.4-5.0) Globulin 4.8 g/dL Albumin/Globulin Ratio 0.9 (1.0-2.7) L Lipase 122 U/L (73-393) Human Chorionic Gonadotropin, Quant 1 mIU/mL (1-6) Urine Color Pale yellow Urine Appearance Clear Urine pH 5 (4.5-8.0) Urine Specific [place] 1.020 (1.005-1.035) Urine Protein Negative (NEGATIVE) Urine Glucose (UA) Negative (NEGATIVE) Urine Ketones Negative (NEGATIVE) Urine Blood 5+ (NEGATIVE) H Urine Nitrite Negative (NEGATIVE) Urine Bilirubin Negative (NEGATIVE) Urine Urobilinogen Normal MG/DL (0.0-1.0) Urine Leukocyte Esterase 1+ (NEGATIVE) H Urine RBC 5-10 /HPF (0 - 2) H Urine WBC 2-4 /HPF (0 - 2) Urine Squamous Epithelial Cells Moderate /LPF (NONE/OCC) H Urine Bacteria Few /HPF (NONE) Urine HCG, Qualitative Negative (NEGATIVE) Urine Opiates Screen Positive (NEGATIVE) H Urine Barbiturates Screen Negative (NEGATIVE) Phencyclidine (PCP) Screen Negative (NEGATIVE) Urine Amphetamines Screen Negative (NEGATIVE) Urine Benzodiazepines Screen Negative (NEGATIVE) Urine Cocaine Screen Negative (NEGATIVE) Urine Marijuana (THC) Screen Negative (NEGATIVE) Height (Feet): 5 Height (Inches): 1.00 Weight (Pounds): 160 Medications Current Medications Medications (Trade) Dose Ordered Sig/Hafsa Route PRN Reason Start Time Stop Time Status Last Admin Dose Admin Acetaminophen (Tylenol) 650 mg Q4H PRN ORAL Mild Pain/Temp > 100.5 07/16/18 00:30 08/15/18 00:29 Ceftriaxone Sodium 1 gm/ Sodium Chloride 55 ml @ 110 mls/hr Q24H IVPB 07/16/18 22:00 07/23/18 21:59 Docusate Sodium (Colace) 100 mg TWICE A DAY ORAL 07/16/18 09:00 08/15/18 08:59 07/16/18 08:12 Iopamidol (Isovue-300 100ml) 100 ml NOW PRN INJ Radiology Procedure 07/15/18 19:30 Ketorolac Tromethamine (Toradol 30mg) 15 mg Q6H IV 07/16/18 03:00 07/21/18 02:59 07/16/18 08:13 Morphine Sulfate (Morphine Sulfate) 2 mg Q4H PRN IVP For Pain 07/16/18 00:30 07/23/18 00:29 Morphine Sulfate (Morphine Sulfate) 4 mg Q4H PRN IVP Severe Pain (Pain Scale 7-10) 07/16/18 00:30 07/23/18 00:29 07/16/18 07:04 Ondansetron HCl (Zofran) 4 mg Q6H PRN IVP Nausea & Vomiting 07/16/18 01:00 08/15/18 00:59 Sodium Chloride 1,000 ml @ 100 mls/hr Q10H IV 07/16/18 01:30 08/15/18 01:29 07/16/18 01:51 Assessment/Plan Status: stable Assessment/Plan # R renal colic 2/2 R ureteral stone with hydronephrosis # Sepsis - Urology consulted--plan for OR on Friday - Empiric ceftriaxone - F/u cultures - Trend CBC - IVFs - Pain control w/ toradol ATC + morphine IV PRN - Bowel regimen - Supportive # Hyponatremia - IVFs DVT Prophylaxis: SCD Code Status: Full Hospital Classification Declaration: Based on this initial evaluation, and depending on the patient's clinical course, I anticipate that this patient will require hospitalization for 2-3 days for sepsis, R ureteral stone w/ hydronephrosis, and close respiratory/hemodynamic monitoring. Disposition: Once the patient is stable to leave the hospital, I anticipate the patient will likely be discharged to the following environment: home I spent 70 minutes on this patient's case, and 42 minutes were dedicated to counseling and/or care coordination. Discussed with patient/family, nursing staff, SW/CM, urology regarding clinical status, treatment course, and disposition planning. Time of note may not reflect time of encounter. Zaira Vital M.D. Jul 16, 2018 10:14
[2018-07-16 12:00] VITALS: BP 118/68
[2018-07-16] MEDS: Morphine Sulfate 4mg/ml Inj (IV USE ONLY) IVP PRN ×2 (12:06→17:59)
[2018-07-16 16:00] VITALS: BP 118/67
[2018-07-16 20:00] VITALS: BP 119/67
[2018-07-16] MEDS: cefTRIAXone 1 GM in NS 55 ML IVPB SCH (20:47)
[2018-07-17] VITALS (16 sets, daily range): BP systolic 97–122; BP diastolic 47–75
[2018-07-17] MEDS: Morphine Sulfate 4mg/ml Inj (IV USE ONLY) IVP PRN ×2 (01:42→15:42)
[2018-07-17] MEDS: Ketorolac 30mg Inj IV SCH ×4 (03:02→20:46)
[2018-07-17 06:36] LABS: BASOPHILS % (AUTO) 0.5 % (0.0-2.0); EOSINOPHILS % (AUTO) 0.9 % (0.0-3.0); HEMATOCRIT 31.5 % (37.0-47.0); HEMOGLOBIN 10.6 G/DL (12.0-16.0); LYMPHOCYTES % (AUTO) 22.3 % (20.0-45.0); MEAN CORPUSCULAR VOLUME 87 FL (80-99); MONOCYTES % (AUTO) 9.1 % (1.0-10.0); NEUTROPHILS % (AUTO) 67.2 % (45.0-75.0); PLATELET COUNT 218 K/UL (150-450); RED BLOOD COUNT 3.62 M/UL (4.20-5.40); RED CELL DISTRIBUTION WIDTH 11.5 % (11.6-14.8); WHITE BLOOD COUNT 8.4 K/UL (4.8-10.8)
[2018-07-17 07:00] LABS: ANION GAP 7 mmol/L (5-15); BLOOD UREA NITROGEN 9 mg/dL (7-18); CALCIUM 8.3 MG/DL (8.5-10.1); CARBON DIOXIDE 25 MMOL/L (21-32); CHLORIDE 105 MMOL/L (98-107); CREATININE 0.7 MG/DL (0.55-1.30); POTASSIUM 3.8 MMOL/L (3.5-5.1); SODIUM 137 MMOL/L (136-145)
[2018-07-17] MEDS: Docusate 100mg cap ORAL SCH ×2 (09:00→17:01)
--- NOTE | 2018-07-17 09:57 | General Progress Note ---
Assessment/Plan Status: stable Assessment/Plan # R renal colic 2/2 R ureteral stone with hydronephrosis # Sepsis # UTI - Urology consulted--plan for OR today, NPO since MN - Empiric ceftriaxone - F/u cultures - Trend CBC - IVFs - Pain control w/ toradol ATC + morphine IV PRN - Bowel regimen - Supportive # Hyponatremia - improved - IVFs DVT Prophylaxis: SCD Code Status: Full Hospital Classification Declaration: Based on this initial evaluation, and depending on the patient's clinical course, I anticipate that this patient will require hospitalization for 1-2 days for sepsis, R ureteral stone w/ hydronephrosis, and close respiratory/hemodynamic monitoring. Disposition: Once the patient is stable to leave the hospital, I anticipate the patient will likely be discharged to the following environment: home I spent 40 minutes on this patient's case, and 22 minutes were dedicated to counseling and/or care coordination. Discussed with patient/family, nursing staff, SW/CM, urology regarding clinical status, treatment course, and disposition planning. Time of note may not reflect time of encounter. Subjective Date patient seen: Jul 17, 2018 Time patient seen: 09:56 ROS Limited/Unobtainable: No Constitutional: Reports: no symptoms HEENT: Reports: no symptoms Cardiovascular: Reports: no symptoms Respiratory: Reports: no symptoms Gastrointestinal/Abdominal: Reports: no symptoms Genitourinary: Reports: flank pain, pain Neurologic/Psychiatric: Reports: no symptoms Endocrine: Reports: no symptoms Hematologic/Lymphatic: Reports: no symptoms Allergies: Coded Allergies: No Known Allergies (Unverified , 03/13/16) Subjective No acute o/n events NPO for OR today per urology Pain better controlled Objective Last 24 Hour Vital Signs Date Time Temp Pulse Resp B/P (MAP) Pulse Ox O2 Delivery O2 Flow Rate FiO2 07/17/18 08:00 98.2 95 19 105/60 (75) 94 98.2 07/17/18 04:00 98.1 76 18 106/67 (80) 97 98.1 07/17/18 00:00 98.3 76 18 110/63 (79) 98 98.3 07/16/18 21:00 Room Air 07/16/18 20:00 98.1 78 18 119/67 (84) 94 98.1 07/16/18 18:22 98.0 07/16/18 17:59 98.0 07/16/18 16:05 98.0 07/16/18 16:00 97.6 71 20 118/67 (84) 97 97.6 07/16/18 12:06 98.0 07/16/18 12:00 98.0 73 20 118/68 (85) 98 98.0 07/16/18 10:16 98.0 Intake and Output 07/16/18 07/17/18 19:00 07:00 Intake Total 1580 ml 1055 ml Balance 1580 ml 1055 ml Intake Oral 480 ml IV Total 1100 ml 1055 ml # Voids 3 3 Laboratory Tests 07/17/18 05:45: White Blood Count 8.4, Red Blood Count 3.62L, Hemoglobin 10.6L, Hematocrit 31.5L , Mean Corpuscular Volume 87, Mean Corpuscular Hemoglobin 29.3, Mean Corpuscular Hemoglobin Concent 33.7, Red Cell Distribution Width 11.5L, Platelet Count 218, Mean Platelet Volume 7.8, Neutrophils (%) (Auto) 67.2, Lymphocytes (%) (Auto) 22.3, Monocytes (%) (Auto) 9.1, Eosinophils (%) (Auto) 0.9, Basophils (%) (Auto) 0.5, Sodium Level 137, Potassium Level 3.8, Chloride Level 105, Carbon Dioxide Level 25, Anion Gap 7, Blood Urea Nitrogen 9, Creatinine 0.7, Estimat Glomerular Filtration Rate > 60, Glucose Level 93, Calcium Level 8.3L, Magnesium Level 1.8 Height (Feet): 5 Height (Inches): 1.00 Weight (Pounds): 160 Objective General: alert, cooperative, no distress, appears stated age Head: normocephalic, without obvious abnormality, atraumatic Eyes: conjunctivae/corneas clear. PERRL, EOM's intact Throat: lips, mucosa, and tongue normal. MMM Neck: supple, symmetrical, trachea midline, and no JVD Lungs: clear to auscultation bilaterally Heart: regular rate and rhythm, S1, S2 normal, no murmur, click, rub or gallop Abdomen: soft, non-tender, non-distended, bowel sounds normal; no masses or organomegaly : +R CVAT Extremities: extremities normal, atraumatic, no cyanosis or edema Pulses: 2+ and symmetric Skin: skin color, texture, turgor normal; no rashes or lesions Neurologic: grossly normal, no focal deficits Zaira Vital M.D. Jul 17, 2018 09:57
[2018-07-17] MEDS ORDERED: D5 1/2NS 1,000 ML IV SCH (12:00)
[2018-07-17] MEDS ORDERED: Sodium Chloride 10ml vial INJ ONE (12:22)
[2018-07-17] MEDS ORDERED: Lidocaine 1% MPF 10mg/ml 5ml ONE (12:22)
[2018-07-17] MEDS ORDERED: Dexamethasone 4mg/ml vial ONE (12:22)
[2018-07-17] MEDS ORDERED: Iothalamate Meglumine 60% 30ML INJ ONE (12:27)
[2018-07-17] MEDS ORDERED: fentaNYL 100 mcg/2 mL IV ONE (12:28)
[2018-07-17] MEDS ORDERED: LR 1000ml 1,000 ML IVLG SCH (12:32)
[2018-07-17] MEDS ORDERED: LORazepam Inj 2mg/ml 1ml IV PRN (12:45)
[2018-07-17] MEDS ORDERED: oxyCODONE HCL/Acetaminophen 5/325mg ORAL PRN (12:45)
[2018-07-17] MEDS ORDERED: fentaNYL 100 mcg/2 mL IV PRN (12:45)
[2018-07-17] MEDS ORDERED: Norco 5mg/325mg tab ORAL PRN (12:45)
[2018-07-17] MEDS ORDERED: Labetalol 5mg/ml 20ml vial IV PRN (12:45)
[2018-07-17] MEDS ORDERED: HYDROcodone/Acetamin 7.5/325 tab ORAL PRN (12:45)
[2018-07-17] MEDS ORDERED: Hydromorphone 0.5mg/0.5ml inj IVP PRN (12:45)
[2018-07-17] MEDS ORDERED: Midazolam 2mg/2ml Inj IVP PRN (12:45)
[2018-07-17] MEDS ORDERED: Metoclopramide 10mg/2ml Inj IVP PRN (12:45)
[2018-07-17] MEDS ORDERED: Meperidine 50mg/ml Inj(FOR RIGORS ONLY) IVP PRN (12:45)
[2018-07-17] MEDS ORDERED: DiphenhydrAMINE 50mg/ml Inj IVP PRN (12:45)
[2018-07-17] MEDS ORDERED: Ketorolac 30mg Inj IV PRN ×2 (12:45)
[2018-07-17] MEDS ORDERED: Atropine Sulfate 0.4mg/ml inj IVP PRN (12:45)
[2018-07-17] MEDS ORDERED: Acetaminophen (Non formulary) 100 ML IV ONE (12:45)
--- NOTE | 2018-07-17 12:53 | Anethesia Preoperative Eval ---
Anesthesia Pre-op PMH/ROS General Date of Evaluation: Jul 17, 2018 Time of Evaluation: 12:41 Anesthesiologist: Cierra ASA Score: ASA 2 Mallampati Score Class I : Soft palate, uvula, fauces, pillars visible Class II: Soft palate, uvula, fauces visible Class III: Soft palate, base of uvula visible Class IV: Only hard plate visible Mallampati Classification: Class I Surgeon: Lexi Diagnosis: Abd Pain Surgical Procedure: R Ureteroscopy, Laser Lithotripsy, JJ Stent Anesthesia History: none Family History: no anesthesia problems Allergies: Coded Allergies: No Known Allergies (Unverified , 03/13/16) Medications: see eMAR Past Medical History Hematology/Immune: Reports: anemia Other: obesity - BMI 30 PSxH Narrative: Previous Surgery Anesthesia Pre-op Phys. Exam Physician Exam Last Vital Signs Date Time Temp Pulse Resp B/P (MAP) Pulse Ox O2 Delivery O2 Flow Rate FiO2 07/17/18 12:00 96.0 73 18 108/61 (77) 94 96.0 07/17/18 09:00 Room Air Constitutional: NAD Neurologic: CN 2-12 intact Cardiovascular: RRR Respiratory: CTA Gastrointestinal: S/NT/ND Airway Exam Mallampati Score: Class I MO: full ROM: full Teeth: intact Anesthesia Pre-op A/P Labs Hematology Test 07/17/18 05:45 White Blood Count 8.4 K/UL (4.8-10.8) Red Blood Count 3.62 M/UL (4.20-5.40) L Hemoglobin 10.6 G/DL (12.0-16.0) L Hematocrit 31.5 % (37.0-47.0) L Mean Corpuscular Volume 87 FL (80-99) Mean Corpuscular Hemoglobin 29.3 PG (27.0-31.0) Mean Corpuscular Hemoglobin Concent 33.7 G/DL (32.0-36.0) Red Cell Distribution Width 11.5 % (11.6-14.8) L Platelet Count 218 K/UL (150-450) Mean Platelet Volume 7.8 FL (6.5-10.1) Neutrophils (%) (Auto) 67.2 % (45.0-75.0) Lymphocytes (%) (Auto) 22.3 % (20.0-45.0) Monocytes (%) (Auto) 9.1 % (1.0-10.0) Eosinophils (%) (Auto) 0.9 % (0.0-3.0) Basophils (%) (Auto) 0.5 % (0.0-2.0) Chemistry Test 07/17/18 05:45 Sodium Level 137 MMOL/L (136-145) Potassium Level 3.8 MMOL/L (3.5-5.1) Chloride Level 105 MMOL/L (98-107) Carbon Dioxide Level 25 MMOL/L (21-32) Anion Gap 7 mmol/L (5-15) Blood Urea Nitrogen 9 mg/dL (7-18) Creatinine 0.7 MG/DL (0.55-1.30) Estimat Glomerular Filtration Rate > 60 mL/min (>60) Glucose Level 93 MG/DL (74-106) Calcium Level 8.3 MG/DL (8.5-10.1) L Magnesium Level 1.8 MG/DL (1.8-2.4) Risk Assessment & Plan Assessment: ASA 2 Plan: GA, SED Status Change Before Surgery: Nicolás Yanez MD Jul 17, 2018 12:53
--- NOTE | 2018-07-17 12:54 | Immediate Post-Op Evaluation ---
Immediate Post-Op Evalulation Immediate Post-Op Evalulation Procedure: R Ureteroscopy, Laser Lithotripsy, JJ Stent Date of Evaluation: Jul 17, 2018 Time of Evaluation: 14:22 IV Fluids: 300 LR Blood Products: 0 Estimated Blood Loss: 4 Urinary Output: 0 Blood Pressure Systolic: 97 Blood Pressure Diastolic: 61 Pulse Rate: 65 Respiratory Rate: 16 O2 Sat by Pulse Oximetry: 99 Temperature (Fahrenheit): 98 Pain Score (1-10): 2 Nausea: No Vomiting: No Complications 0 Patient Status: awake, reacts, patent, none Hydration Status: adequate Nicolás Norton MD Jul 17, 2018 12:54
[2018-07-17] MEDS ORDERED: NS Irrig 4000ml IRRIG ONE (13:00)
[2018-07-17] MEDS ORDERED: LR 1000ml ONE (13:00)
[2018-07-17] MEDS ORDERED: Sterile Water Irrig 1000ml IRRIG ONE (13:00)
[2018-07-17] MEDS ORDERED: Propofol 200mg/20ml IV ONE (13:00)
[2018-07-17] MEDS ORDERED: NS Irrig 1000ml ONE (13:00)
--- NOTE | 2018-07-17 13:00 | Pre-Procedure Note/Attestation ---
Pre-Procedure Note/Attestation Complete Prior to Procedure Procedure Narrative: ureteroscopy, possible laser lithotripsy, possible JJ stent placement, cystoscopy and fluoroscopy Indications for Procedure Pre-Operative Diagnosis: R ureteral stone/ hydronephrosis/ colic Attestation I attest that I discussed the nature of the procedure; its benefits; risks and complications; and alternatives (and the risks and benefits of such alternatives ), prior to the procedure, with the patient (or the patient's legal financial sales representative). I attest that, if there was a reasonable possibility of needing a blood transfusion, the patient (or the patient's legal financial sales representative) was given the [facility] standardized written summary, pursuant to the Boyd Dmitri Blood Safety Act ([place] Health and Safety Code # 1645, as amended). I attest that I re-evaluated the patient just prior to the surgery and that there has been no change in the patient's H&P, except as documented below: Eric Elliott M.D. Jul 17, 2018 13:00
--- NOTE | 2018-07-17 14:05 | Operative Note - PDOC ---
Operative Note Operative Note Date of Operation/Procedure: Jul 17, 2018 Chief Complaint: R ureteral stone Pre-op Diagnosis: R ureteral stone/ hydronephrosis/ colic Procedure: R ureteroscopy, laser lithotripsy, JJ stent placement,cysto and fluoroscopy Post-op Diagnosis: same Post-op Diagnosis: same as pre-op Operative Findings: consistent w/pre-op dx studies Surgeon: leroy Anesthesiologist: Cierra Anesthesia: general Specimen: none Complications: none Condition: stable Estimated Blood Loss: none Drains: other - JJ stent Implant(s) used?: Yes - JJ stent Indications for Procedure R ureteral stone/ pain Eric Elliott M.D. Jul 17, 2018 14:05
[2018-07-17] MEDS ORDERED: Tubing IV Secondary IV ONE (15:32)
[2018-07-17] MEDS ORDERED: D5NS 1000ml IV ONE (15:32)
--- NOTE | 2018-07-17 16:40 | Diagnostic Imaging Report ---
Indication: Intraoperative imaging ureteral stent placement Comparison: None 3 fluoroscopic images obtained. Fluoroscopic time 12 seconds. Findings: Fluoroscopic imaging showing a right ureteral stent in 3 fluoroscopically obtained images. Intrauterine device incidentally noted. IMPRESSION: Intraoperative imaging
[2018-07-17] MEDS: cefTRIAXone 1 GM in NS 55 ML IVPB SCH (20:45)
--- NOTE | 2018-07-17 22:00 | Operative Note - Dictated ---
DATE OF OPERATION: 07/17/2018 PREOPERATIVE DIAGNOSIS: Right ureteral stone with hydronephrosis and colic secondary to same. POSTOPERATIVE DIAGNOSIS: Right ureteral stone with hydronephrosis and colic secondary to same. PROCEDURE PERFORMED: Right ureteroscopy, laser lithotripsy, double-J stent placement, cystoscopy and fluoroscopy. SURGEON: Eric Elliott M.D. ANESTHESIA: General/LMA. ESTIMATED BLOOD LOSS: None. IV FLUIDS: IV crystalloid only. DRAINS, TUBES, AND CATHETERS: A 6-English x 22 cm double-J stent left indwelling. SPECIMENS: None. COMPLICATIONS: None. OPERATIVE INDICATION: The patient is a 32-year-old female with history of a 6-mm right ureteral stone with hydronephrosis and colic secondary to same. After evaluation and consultation with me, she elected to undergo the procedure described above. She was scheduled for this procedure at [facility] on 07/17/2018. OPERATIVE NOTE IN DETAIL: The patient was brought to the operative room and placed on the table in supine position. General anesthesia was then induced. Once the patient had her LMA in place, she was repositioned in dorsal lithotomy and draped and prepped in usual sterile fashion. Using a semirigid ureteroscope, the patient's urethral meatus was calibrated and the scope was passed along the length of the urethra. The urethra was within normal limits. The bladder was entered and inspected. There was no evidence of masses, tumors, or stones and both ureteral orifices were identified. Attention was turned to the right ureteral orifice, into which a 0.025 Glidewire was cannulated and used to pass the scope up into the mid ureter where the stone was encountered. Using a 365 holmium laser fiber in the setting of 0.5 to 0.8 joules and 8 hertz. I proceeded to fragment the stone in its entirety. Once this was done, I could pass the scope into the mid and proximal ureter with no further evidence of obstruction, stone, or other abnormality. A descending ureteroscopy confirmed the same and that there was no significant remaining stone fragments. A guidewire was left in place and the ureteroscope was removed. The cystoscope was back fed over the wire and placed in the bladder at the right ureteral orifice. It was used to pass a 6-English x 22 cm double-J stent into the right renal collecting system with a good curl noted fluoroscopically within the kidney and cystoscopically within the bladder. Once the stent was in place, the bladder was evacuated through the scope and the scope was removed. The patient was taken out of dorsal lithotomy and placed back in supine position. She was cleaned, dried, and dressed. She was awakened and extubated without difficulty and transported to recovery in stable condition. I was present and scrubbed for the entire duration of this case. All needle, sponge, and instrument counts were reported correct. Eric Elliott M.D. DR: JENNIFER JOB#: [id number] CC:
[2018-07-18] VITALS: BP 100/56
[2018-07-18] MEDS: Ketorolac 30mg Inj IV PRN ×2 (00:26→08:45)
[2018-07-18 04:00] VITALS: BP 103/56
[2018-07-18 06:13] LABS: BASOPHILS % (AUTO) 0.4 % (0.0-2.0); EOSINOPHILS % (AUTO) 0.2 % (0.0-3.0); HEMATOCRIT 30.9 % (37.0-47.0); HEMOGLOBIN 10.4 G/DL (12.0-16.0); LYMPHOCYTES % (AUTO) 15.7 % (20.0-45.0); MEAN CORPUSCULAR VOLUME 86 FL (80-99); MONOCYTES % (AUTO) 8.1 % (1.0-10.0); NEUTROPHILS % (AUTO) 75.7 % (45.0-75.0); PLATELET COUNT 218 K/UL (150-450); RED BLOOD COUNT 3.59 M/UL (4.20-5.40); RED CELL DISTRIBUTION WIDTH 11.6 % (11.6-14.8); WHITE BLOOD COUNT 9.7 K/UL (4.8-10.8)
[2018-07-18 06:36] LABS: ANION GAP 9 mmol/L (5-15); BLOOD UREA NITROGEN 13 mg/dL (7-18); CALCIUM 8.3 MG/DL (8.5-10.1); CARBON DIOXIDE 24 MMOL/L (21-32); CHLORIDE 105 MMOL/L (98-107); CREATININE 0.6 MG/DL (0.55-1.30); POTASSIUM 3.6 MMOL/L (3.5-5.1); SODIUM 138 MMOL/L (136-145)
[2018-07-18 08:00] VITALS: BP 116/63
[2018-07-18] MEDS: Docusate 100mg cap ORAL SCH (08:23)
--- NOTE | 2018-07-19 16:25 | Discharge Summary ---
Discharge Summary Hospital Course Date of Admission Jul 15, 2018 at 21:59 Date of Discharge Jul 18, 2018 at 11:45 Admitting Diagnosis Sepsis, UTI, R ureteral stone Reason for Hospitalization: Sepsis, UTI, R ureteral stone HPI 32y/o female with pmh of cholelithiasis who presents with R abd/flank pain. Pt noted acute onset severe R abd/flank pain since yesterday AM w/ associated nausea but no emesis. Denies f/c, d/c, chest pain, SOB, dysuria, hematuria. In ED, pt had CT which showed 6 mm stone in the right ureter. Urology consulted. Pt given ceftriaxone IV in ED. Consultations Urology Procedures s/p R ureteroscopy, laser lithotripsy, JJ stent placement,cysto and fluoroscopy on 07/17/18 Hospital Course Pt was admitted and seen by urology. She was placed on empiric IV antibiotics and pain medications. She underwent R ureteroscopy, laser lithotripsy, JJ stent placement, cystoscopy and fluoroscopy on 07/17/18. Pt tolerated procedure well. The next day pt with improved pain. She was cleared for discharge home by urology. Discharge Medications Continued Medications: Acetaminophen* (Tylenol Extra Strength*) 500 Mg Tablet 500 MG ORAL Q8H PRN for Prn Headache/Temp > 101, #30 TAB 0 Refills Hydrocodone Bit/Acetaminophen 5-325* ([place] 5-325*) 1 Each Tablet 1 TAB ORAL Q6H PRN for For Pain, #10 TAB 0 Refills Nitrofurantoin Monohyd/M-Cryst* (Macrobid 100 Mg*) 100 Mg Capsule 100 MG ORAL EVERY 12 HOURS for 7 Days, #14 CAP No Known Medications* (NKM - No Known Medications*) . 0 ., 0 Refills (This prescription has been renewed) Ondansetron Odt* (Zofran Odt*) 8 Mg Tab.rapdis 8 MG ORAL Q6H PRN for Nausea & Vomiting, #10 TAB Discontinued Medications: Nitrofurantoin Monohyd/M-Cryst (Nitrofurantoin [place]hen[place]-Mcr 100 mg) 100 Mg Cap 100 MG ORAL Q12H, #14 CAP Discharge Condition Upon Discharge: stable Discharge Disposition Patient was discharged to Home (01) Discharge Diagnoses: (1) Right ureteral stone (2) Renal colic on right side (3) Sepsis (4) UTI (urinary tract infection) Zaira Vital M.D. Jul 19, 2018 16:24
[2018-07-19 18:25] VITALS: BP 116/63
--- NOTE | 2018-07-19 18:25 | 48 Hour Post Anesthesia Eval ---
Post Anesthesia Evaluation Procedure: R Ureteroscopy, Laser Lithotripsy, JJ Stent Date of Evaluation: Jul 19, 2018 Time of Evaluation: 18:24 Blood Pressure Systolic: 116 0: 63 Pulse Rate: 65 Respiratory Rate: 14 Temperature (Fahrenheit): 96.6 O2 Sat by Pulse Oximetry: 96 Nausea: No Vomiting: No Pain Intensity: 3 If pain is > 6 Comment: Hydration Status: adequate Cardiopulmonary Status: stable Mental Status/LOC: patient returned to baseline Post-Anesthesia Complications: none Follow-up care needed: N/A Halle Banks CRNA Jul 19, 2018 18:25
== END 2018-07-18 11:45 | disposition home or self-care (01) | DRG 854 ==
LOC: EMR 19:28 → 4E 21:59 → EDBEDREQ 22:17
PROC: 0TF68ZZ Fragmentation in Right Ureter, Via Natural or Artificial Opening Endoscopic (ICD-10-PCS; principal; 2018-07-17 13:00)
PROC: 0T7B8DZ Dilation of Bladder with Intraluminal Device, Via Natural or Artificial Opening Endoscopic (ICD-10-PCS; principal; 2018-07-17 13:00)
DX: A41.9 Sepsis, unspecified organism (principal); N13.2 Hydronephrosis with renal and ureteral calculous obstruction; N39.0 Urinary tract infection, site not specified; E87.1 Hypo-osmolality and hyponatremia
CPT/HCPCS: 36415; 74018; 74177; 76000; 80048; 80053; 80307; 81003; 81025; 83690; 83735; 84702; 85025; 94003; 94150; 96361; 96365; 96375; 99285; J2405

== ENCOUNTER 2019-12-25 16:49 | Emergency (ER) | payer SELFPAY ==
[~2019-12-25] VITALS: Ht 154.9 cm; Wt 68.9 kg
--- NOTE | 2019-12-25 17:02 | Emergency Room Report ---
History of Present Illness General Chief Complaint: Female Urogenital Problems Source: Patient Present Illness HPI 34-year-old female 1 day of vaginal pain hurts when urine touches the vaginal lips severity is mild, intermittent occurred yesterday, no alleviating factors patient presents for evaluation No recent sexual encounters Allergies: Coded Allergies: No Known Allergies (Unverified , 03/13/16) Patient History Past Medical History: see triage record Last Menstrual Period: 12/01/2019 Now: No Reviewed Nursing Documentation: PMH: Agreed; PSxH: Agreed Nursing Documentation-PMH Past Medical History: No Stated History Hx Cardiac Problems: No Hx Cancer: No Hx Gastrointestinal Problems: Yes - gallstones Hx Neurological Problems: No Review of Systems All Other Systems: negative except mentioned in HPI Physical Exam Vital Signs Date Time Temp Pulse Resp B/P (MAP) Pulse Ox O2 Delivery O2 Flow Rate FiO2 12/25/19 16:55 98.2 87 18 135/67 (89) 99 Room Air Sp02 EP Interpretation: reviewed, normal General Appearance: well appearing, no apparent distress, alert Head: normocephalic, atraumatic Eyes: bilateral eye PERRL, bilateral eye EOMI ENT: uvula midline, moist mucus membranes Neck: supple, thyroid normal, supple/symm/no masses Respiratory: lungs clear, no respiratory distress, no retraction, no accessory muscle use Cardiovascular #1: normal peripheral pulses, regular rate, rhythm, no edema, no gallop, no murmur Gastrointestinal: non tender, soft, no guarding, no rebound Genitourinary: other - 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, vesicular lesions externally on the vulva Musculoskeletal: normal inspection Neurologic: alert, oriented x3 Psychiatric: mood/affect normal Skin: no rash, warm/dry Medical Decision Making Diagnostic Impression: Primary Impression: Herpes genitalis in women ER Course 34-year-old female presents with herpes of the genitalia We will start acyclovir disposition home with return precautions follow-up with PCP Last Vital Signs Date Time Temp Pulse Resp B/P (MAP) Pulse Ox O2 Delivery O2 Flow Rate FiO2 12/25/19 16:55 98.2 87 18 135/67 (89) 99 Room Air Disposition: HOME, SELF-CARE Condition: Stable Scripts Acyclovir* (ACYCLOVIR*) 400 Mg Tablet 400 MG ORAL TID for 10 Days, #30 TAB Prov: Rian Villavicencio MD 12/25/19 Referrals: [facility] Patient Instructions: Herpes Labialis Additional Instructions: The patient was provided with discharge instructions, notified to follow-up with a primary care doctor and or specialist in the next 24-48 hours, and to return to the ED if they have worsening of their symptoms. Please note that this report is being documented using [employer] technology. This can lead to erroneous entry secondary to incorrect interpretation by the dictating instrument. Rian Villavicencio MD Dec 25, 2019 17:02
[2019-12-25 17:03] VITALS: BP 135/67
--- NOTE | 2019-12-25 17:05 | NUR ---
ED Nurse Note: Patient walked in to ER c/o severe abdominal pain, burning while she voiding, vaginal Dc since yestrday. AAO x4, VSS at this time.
[2019-12-25] MEDS ORDERED: ACYCLOVIR400 MG ORAL (17:22)
[2019-12-25 17:27] VITALS: BP 135/67
--- NOTE | 2019-12-25 17:28 | NUR ---
ED Nurse Note: Pt cleared by health care Provider for discharge. DC instructions/prescription was given and explained to pt and verbalized understanding of teachings. All medical deviecs such as ID band removed. Pt is AAO x4, ambulatory and left with all personal belongings.
== END 2019-12-25 17:28 | disposition home or self-care (01) ==
LOC: EMR 17:01
DX: A60.04 Herpesviral vulvovaginitis (principal)
CPT/HCPCS: 99283